=== PATIENT | female | born 1950 | race Caucasian/White ===

== ENCOUNTER → 2017-02-03 | Outpatient (CLI) | payer MEDICARE, MEDICAID ==
[~2017-02-03] MED LIST: ALBU18HF INH; ALBU2.5V NEB; ALPR0.25 PO; AMOX1TAB12 PO; DOXY100T PO; ENOX30DI3 SQ; FLUO10CA13 PO; HYDR-3241 PO; INHALER; [UNRECOGNIZED DRUG - CODE]
== END | disposition home or self-care (01) ==
LOC: CFH 10:54
PROVIDERS: ATTEND Internal Medicine
DX: Z13.820 Encounter for screening for osteoporosis (principal); M81.0 Age-related osteoporosis without current pathological fracture; S72.001D Fracture of unspecified part of neck of right femur, subsequent encounter for closed fracture with routine healing; X58.XXXD Exposure to other specified factors, subsequent encounter
CPT/HCPCS: 77080

== ENCOUNTER 2017-03-23 10:22 | Inpatient (IN) | payer MEDICARE, MEDICAID ==
[~2017-03-23] VITALS: Ht 160 cm; Wt 60.5 kg
[2017-03-23] MEDS ORDERED: ONDANSETRON 2MG/ML, 2ML ONE (11:41)
[2017-03-23] MEDS ORDERED: SODIUM CHLORIDE FLUSH 10ML SYR IVF ONE (12:00)
[2017-03-23] MEDS ORDERED: SODIUM CHLORIDE 0.9% 1,000ML IVBOLUS ONE (12:00)
[2017-03-23] MEDS ORDERED: ONDANSETRON 2MG/ML, 2ML IVPush ONE (12:00)
[2017-03-23 12:05] LABS: ASPARTATE AMINO TRANSFERASE 19 U/L (15-37); BLOOD UREA NITROGEN 72 mg/dL (7-18)
[2017-03-23 12:10] LABS: IS PT STATUS REG ER OR PRE ER? YES
[2017-03-23] MEDS ORDERED: NS + 40MEQ KCL 1,000 ML IV ONE (12:24)
[2017-03-23] MEDS ORDERED: MAGNESIUM SULFATE 1 GM in SODIUM CHLORIDE 0.9% 50 ML IV ONE (12:30)
[2017-03-23] MEDS ORDERED: NITROGLYCERIN OINT 2%, 1GM TP ONE ×2 (13:28→13:30)
[2017-03-23] MEDS ORDERED: ASPIRIN 81 MG TABLET CHEW ONE (13:28)
[2017-03-23] MEDS ORDERED: ASPIRIN 81 MG TABLET CHEW PO ONE (13:30)
[2017-03-23] MEDS ORDERED: MORPHINE SULFATE 4 MG/ML, 1ML IVPush PRN (14:00)
[2017-03-23] MEDS ORDERED: LABETALOL 5MG/ML, 20ML IV PRN (14:00)
[2017-03-23] MEDS ORDERED: ACETAMINOPHEN 325 MG TABLET PO PRN (14:00)
[2017-03-23] MEDS ORDERED: TEMAZEPAM 15 MG CAPSULE PO PRN (14:00)
[2017-03-23] MEDS ORDERED: BISACODYL 10 MG SUPP PR PRN (14:00)
[2017-03-23] MEDS ORDERED: POLYETHYLENE GLYCOL 17 GM PACKET PO PRN (14:00)
[2017-03-23] MEDS ORDERED: POTASSIUM CHLORIDE 40 MEQ in SODIUM CHLORIDE 0.9% 500 ML IV ONE (14:00)
[2017-03-23 15:19] VITALS: BP 157/95
[2017-03-23] MEDS: SODIUM CHLORIDE 0.9% 1,000 ML IV SCH (15:38)
[2017-03-23] MEDS ORDERED: MAALOX/HYOSCYAMINE/LIDOCAINE 45 ML BOTTLE PO ONE (16:00)
[2017-03-23 16:26] LABS: IS PT STATUS REG ER OR PRE ER? NO
[2017-03-23] MEDS: FLUTICASONE/VILANTEROL 200-25MCG/INH INH SCH (16:35)
[2017-03-23] MEDS: HEPARIN 5,000 UNITS/ML, 1ML SQ SCH ×2 (16:36→23:48)
[2017-03-23 19:35] VITALS: BP 116/74
[2017-03-23 22:37] LABS: IS PT STATUS REG ER OR PRE ER? NO
[2017-03-24 01:47] VITALS: BP 112/68
[2017-03-24] MEDS: SODIUM CHLORIDE 0.9% 1,000 ML IV SCH ×2 (01:51→08:34)
[2017-03-24 05:08] LABS: BLOOD UREA NITROGEN 46 mg/dL (7-18)
[2017-03-24 05:12] LABS: ASPARTATE AMINO TRANSFERASE 17 U/L (15-37)
[2017-03-24 06:41] VITALS: BP 125/73
[2017-03-24] MEDS ORDERED: REGADENOSON 0.4 MG/5 ML SYRINGE ONE (08:23)
[2017-03-24] MEDS: FLUTICASONE/VILANTEROL 200-25MCG/INH INH SCH (08:34)
[2017-03-24] MEDS: HEPARIN 5,000 UNITS/ML, 1ML SQ SCH ×2 (08:34→17:05)
[2017-03-24] MEDS: FLUOXETINE 10 MG CAP PO SCH (08:34)
[2017-03-24] MEDS: OXYcodone IR 5MG TABLET PO PRN ×2 (08:42→17:05)
[2017-03-24] MEDS: ONDANSETRON 2MG/ML, 2ML IVP PRN ×2 (08:42→17:05)
[2017-03-24] MEDS ORDERED: POTASSIUM CHLORIDE 40 MEQ in SODIUM CHLORIDE 0.9% 500 ML IV ONE (09:30)
[2017-03-24] MEDS: SENNA/DOCUSATE TABLET PO SCH (11:59)
[2017-03-24] MEDS: CEFTRIAXONE PMX 1GM/50ML 50 ML IV SCH (11:59)
[2017-03-24 13:12] VITALS: BP 113/72
[2017-03-24] MEDS ORDERED: MAGNESIUM CITRATE 300ML ORAL SOL PO ONE (16:30)
[2017-03-24] MEDS: OMEPRAZOLE 20 MG CAPSULE.DR PO SCH (17:05)
[2017-03-24] MEDS: SUCRALFATE 1 GM/10 ML UDC PO SCH ×2 (17:05→19:38)
[2017-03-24 19:45] VITALS: BP 107/67
[2017-03-25] MEDS: HEPARIN 5,000 UNITS/ML, 1ML SQ SCH ×3 (01:13→16:29)
[2017-03-25 01:26] VITALS: BP 130/73
[2017-03-25] MEDS: ONDANSETRON 2MG/ML, 2ML IVP PRN (01:43)
[2017-03-25] MEDS: OXYcodone IR 5MG TABLET PO PRN ×4 (01:43→18:44)
[2017-03-25 05:55] LABS: BLOOD UREA NITROGEN 22 mg/dL (7-18)
[2017-03-25 07:32] VITALS: BP 124/72
[2017-03-25] MEDS: SENNA/DOCUSATE TABLET PO SCH (09:00)
[2017-03-25] MEDS: SUCRALFATE 1 GM/10 ML UDC PO SCH ×4 (09:08→21:24)
[2017-03-25] MEDS: FLUOXETINE 10 MG CAP PO SCH (09:08)
[2017-03-25] MEDS: FLUTICASONE/VILANTEROL 200-25MCG/INH INH SCH (09:08)
[2017-03-25] MEDS: OMEPRAZOLE 20 MG CAPSULE.DR PO SCH ×2 (09:08→16:29)
[2017-03-25] MEDS: CEFTRIAXONE PMX 1GM/50ML 50 ML IV SCH (12:01)
[2017-03-25 13:47] VITALS: BP 101/58
[2017-03-25] MEDS: maalox/diphenh/lido/sucralfate 5 ML PO SCH ×3 (14:14→21:24)
[2017-03-25 19:18] VITALS: BP 105/63
[2017-03-26] MEDS: HEPARIN 5,000 UNITS/ML, 1ML SQ SCH ×3 (00:57→16:19)
[2017-03-26 02:12] VITALS: BP 112/72
[2017-03-26] MEDS: OXYcodone IR 5MG TABLET PO PRN ×4 (04:33→17:14)
[2017-03-26] MEDS: ONDANSETRON 2MG/ML, 2ML IVP PRN (07:03)
[2017-03-26 07:10] VITALS: BP 131/75
[2017-03-26] MEDS: FLUTICASONE/VILANTEROL 200-25MCG/INH INH SCH (07:45)
[2017-03-26] MEDS: maalox/diphenh/lido/sucralfate 5 ML PO SCH ×2 (07:46→11:33)
[2017-03-26] MEDS: SUCRALFATE 1 GM/10 ML UDC PO SCH ×3 (07:46→16:19)
[2017-03-26] MEDS: FLUOXETINE 10 MG CAP PO SCH (07:46)
[2017-03-26] MEDS: OMEPRAZOLE 20 MG CAPSULE.DR PO SCH ×2 (07:46→16:19)
[2017-03-26] MEDS: SENNA/DOCUSATE TABLET PO SCH (07:48)
[2017-03-26 12:40] VITALS: BP 112/68
[2017-03-26] MEDS: CEFTRIAXONE PMX 1GM/50ML 50 ML IV SCH (12:58)
[2017-03-26] MEDS ORDERED: OMEP-110 PO (15:51)
[2017-03-26] MEDS ORDERED: FLUT1BLS INH (15:51)
[2017-03-26] MEDS ORDERED: maalox/diphenh/lido/sucralfate PO (15:51)
[2017-03-26] MEDS ORDERED: SUCR1ORA2 PO (15:51)
[2017-03-26] MEDS ORDERED: CEFD300C37 PO (15:51)
[2017-03-26] MEDS ORDERED: SENN1TAB7 PO (16:00)
[2017-03-26] MEDS ORDERED: POLY17PO5 PO (16:00)
[2017-03-26] MEDS ORDERED: ONDANSETRON ODT 4 MG ONE (18:05)
== END 2017-03-26 18:16 | disposition home or self-care (01) | DRG 391 ==
LOC: ED 11:18 → EDIP 13:36 → 5SO 14:59 → 3NE 03-24 18:50
PROVIDERS: ADMIT Internal Medicine; ATTEND Internal Medicine
DX: K20.9 Esophagitis, unspecified (principal); N17.0 Acute kidney failure with tubular necrosis; N39.0 Urinary tract infection, site not specified; J96.10 Chronic respiratory failure, unspecified whether with hypoxia or hypercapnia; E87.1 Hypo-osmolality and hyponatremia; E86.0 Dehydration; B96.20 Unspecified Escherichia coli [E. coli] as the cause of diseases classified elsewhere; E87.6 Hypokalemia; F32.9 Major depressive disorder, single episode, unspecified; F41.1 Generalized anxiety disorder; J44.9 Chronic obstructive pulmonary disease, unspecified; K59.09 Other constipation; Z82.5 Family history of asthma and other chronic lower respiratory diseases; Z87.891 Personal history of nicotine dependence; Z99.81 Dependence on supplemental oxygen; Z87.81 Personal history of (healed) traumatic fracture; Z80.9 Family history of malignant neoplasm, unspecified; Z90.49 Acquired absence of other specified parts of digestive tract; Z98.51 Tubal ligation status
CPT/HCPCS: 36415; 71020; 74022; 76700; 78452; 80048; 80053; 80061; 81001; 83036; 83690; 83735; 84439; 84443; 84484; 85025; 85610; 85730; 87077; 87086; 87186; 93005; 93017; 96361; 96374; J0696; J1644; J2405; J2785; J3480; A9502; C9898; J7030; J7040

== ENCOUNTER 2017-06-03 13:03 | Inpatient (IN) | payer MEDICAID, MEDICARE ==
[~2017-06-03] VITALS: Ht 160 cm; Wt 57.9 kg
[~2017-06-03 13:03] MED LIST changes: +CEFD300C37 PO; +FLUT1BLS INH; +OMEP-110 PO; +POLY17PO5 PO; +SENN1TAB7 PO; +SUCR1ORA2 PO; +maalox/diphenh/lido/sucralfate PO
[2017-06-03] MEDS ORDERED: SODIUM CHLORIDE 0.9% 1,000 ML IV ONE (13:36)
[2017-06-03] MEDS ORDERED: FAMOTIDINE 20 MG/2 ML IVP ONE (14:00)
[2017-06-03] MEDS ORDERED: SODIUM CHLORIDE 0.9% 1,000ML IVBOLUS ONE (14:00)
[2017-06-03] MEDS ORDERED: ONDANSETRON 2MG/ML, 2ML IVPush ONE (14:00)
[2017-06-03 14:30] LABS: ASPARTATE AMINO TRANSFERASE 25 U/L (15-37); BLOOD UREA NITROGEN 71 mg/dL (7-18)
[2017-06-03 14:57] LABS: IS PT STATUS REG ER OR PRE ER? YES
[2017-06-03] MEDS ORDERED: ONDANSETRON 2MG/ML, 2ML ONE (15:00)
[2017-06-03] MEDS ORDERED: FAMOTIDINE 20 MG/2 ML ONE (15:00)
[2017-06-03] MEDS ORDERED: MAALOX/HYOSCYAMINE/LIDOCAINE 45 ML BOTTLE PO ONE ×2 (16:30→21:00)
[2017-06-03] MEDS ORDERED: MAALOX/HYOSCYAMINE/LIDOCAINE 45 ML BOTTLE ONE (16:32)
[2017-06-03] MEDS ORDERED: PROMETHAZINE 25 MG/ML, 1ML IM PRN (19:00)
[2017-06-03] MEDS ORDERED: ALBUTEROL SULFATE 2.5 MG/3 ML NPPB PRN (19:00)
[2017-06-03] MEDS ORDERED: ACETAMINOPHEN 325 MG TABLET PO PRN (19:00)
[2017-06-03] MEDS ORDERED: BISACODYL 10 MG SUPP PR PRN (19:00)
[2017-06-03 20:00] VITALS: BP 164/98
[2017-06-03] MEDS: ONDANSETRON 2MG/ML, 2ML IVPush PRN (20:25)
[2017-06-03] MEDS: CEFTRIAXONE PMX 1GM/50ML 50 ML IV SCH (20:25)
[2017-06-03] MEDS: HEPARIN 5,000 UNITS/ML, 1ML SQ SCH (20:26)
[2017-06-03] MEDS: NS + 20MEQ KCL 1,000 ML IV SCH (21:27)
[2017-06-04] MEDS: ONDANSETRON 2MG/ML, 2ML IVPush PRN ×2 (02:56→10:39)
[2017-06-04 04:02] VITALS: BP 169/92
[2017-06-04] MEDS: NS + 20MEQ KCL 1,000 ML IV SCH ×3 (06:18→17:54)
[2017-06-04] MEDS: HEPARIN 5,000 UNITS/ML, 1ML SQ SCH ×3 (06:18→20:39)
[2017-06-04 06:27] LABS: BLOOD UREA NITROGEN 42 mg/dL (7-18)
[2017-06-04 06:32] LABS: ASPARTATE AMINO TRANSFERASE 19 U/L (15-37)
[2017-06-04 07:54] VITALS: BP 147/83
[2017-06-04] MEDS: POTASSIUM CHLORIDE 20 MEQ TAB.ER.PRT PO SCH ×3 (09:00→20:39)
[2017-06-04] MEDS: FLUTICASONE/VILANTEROL 200-25MCG/INH INH SCH (09:00)
[2017-06-04] MEDS: FLUOXETINE 10 MG CAP PO SCH (10:39)
[2017-06-04 13:32] VITALS: BP 130/74
[2017-06-04] MEDS: MAALOX/HYOSCYAMINE/LIDOCAINE 45 ML BOTTLE PO PRN (14:23)
[2017-06-04 19:28] VITALS: BP 146/83
[2017-06-04] MEDS: CEFTRIAXONE PMX 1GM/50ML 50 ML IV SCH (20:39)
[2017-06-05] MEDS: NS + 20MEQ KCL 1,000 ML IV SCH (02:06)
[2017-06-05 02:25] VITALS: BP 121/74
[2017-06-05] MEDS: ONDANSETRON 2MG/ML, 2ML IVPush PRN (03:40)
[2017-06-05] MEDS: MAALOX/HYOSCYAMINE/LIDOCAINE 45 ML BOTTLE PO PRN ×2 (04:49→21:12)
[2017-06-05] MEDS: HEPARIN 5,000 UNITS/ML, 1ML SQ SCH ×3 (04:50→21:13)
[2017-06-05 06:01] LABS: BLOOD UREA NITROGEN 18 mg/dL (7-18)
[2017-06-05 07:11] VITALS: BP 116/74
[2017-06-05] MEDS: FLUTICASONE/VILANTEROL 200-25MCG/INH INH SCH (07:59)
[2017-06-05] MEDS: FLUOXETINE 10 MG CAP PO SCH (07:59)
[2017-06-05] MEDS ORDERED: POTASSIUM PHOSPHATE 44 MEQ in SODIUM CHLORIDE 0.9% 500 ML IV ONE (08:00)
[2017-06-05] MEDS: SUCRALFATE 1 GM/10 ML UDC PO SCH ×4 (10:53→21:12)
[2017-06-05] MEDS: LACTOBACILLUS CHEW TABLET PO SCH ×3 (10:54→21:13)
[2017-06-05] MEDS: OMEPRAZOLE 20 MG CAPSULE.DR PO SCH (10:54)
[2017-06-05] MEDS: FAMOTIDINE 20 MG TABLET PO SCH ×2 (10:54→21:13)
[2017-06-05 15:27] VITALS: BP 146/83
[2017-06-05 19:38] VITALS: BP 122/77
[2017-06-05] MEDS: CEFTRIAXONE PMX 1GM/50ML 50 ML IV SCH (20:06)
[2017-06-06 00:52] VITALS: BP 152/83
[2017-06-06] MEDS: HEPARIN 5,000 UNITS/ML, 1ML SQ SCH ×3 (05:14→19:59)
[2017-06-06 05:33] LABS: BLOOD UREA NITROGEN 10 mg/dL (7-18)
[2017-06-06 06:13] VITALS: BP 143/80
[2017-06-06] MEDS: SUCRALFATE 1 GM/10 ML UDC PO SCH ×4 (07:30→19:58)
[2017-06-06] MEDS: FLUOXETINE 10 MG CAP PO SCH (07:31)
[2017-06-06] MEDS: FLUTICASONE/VILANTEROL 200-25MCG/INH INH SCH (07:31)
[2017-06-06] MEDS: LACTOBACILLUS CHEW TABLET PO SCH ×3 (07:31→19:58)
[2017-06-06] MEDS: FAMOTIDINE 20 MG TABLET PO SCH ×2 (07:31→19:58)
[2017-06-06] MEDS: OMEPRAZOLE 20 MG CAPSULE.DR PO SCH ×2 (07:31→18:10)
[2017-06-06] MEDS: MAALOX/HYOSCYAMINE/LIDOCAINE 45 ML BOTTLE PO PRN (08:04)
[2017-06-06 12:37] VITALS: BP 127/73
[2017-06-06 18:41] VITALS: BP 130/72
[2017-06-06] MEDS: CEFTRIAXONE PMX 1GM/50ML 50 ML IV SCH (19:58)
[2017-06-07 03:24] VITALS: BP 134/83
[2017-06-07] MEDS: HEPARIN 5,000 UNITS/ML, 1ML SQ SCH ×3 (05:00→20:57)
[2017-06-07 07:18] VITALS: BP 135/76
[2017-06-07] MEDS: FLUOXETINE 10 MG CAP PO SCH (07:54)
[2017-06-07] MEDS: LACTOBACILLUS CHEW TABLET PO SCH ×3 (07:54→20:56)
[2017-06-07] MEDS: OMEPRAZOLE 20 MG CAPSULE.DR PO SCH ×2 (07:54→15:52)
[2017-06-07] MEDS: SUCRALFATE 1 GM/10 ML UDC PO SCH ×4 (07:54→20:56)
[2017-06-07] MEDS: FLUTICASONE/VILANTEROL 200-25MCG/INH INH SCH (07:54)
[2017-06-07] MEDS: FAMOTIDINE 20 MG TABLET PO SCH (07:55)
[2017-06-07 13:59] VITALS: BP 119/77
[2017-06-07 20:00] VITALS: BP 139/90
[2017-06-08 01:36] VITALS: BP 137/82
[2017-06-08] MEDS: HEPARIN 5,000 UNITS/ML, 1ML SQ SCH (04:35)
[2017-06-08 05:47] LABS: BLOOD UREA NITROGEN 11 mg/dL (7-18)
[2017-06-08] MEDS: SUCRALFATE 1 GM/10 ML UDC PO SCH (07:28)
[2017-06-08] MEDS: LACTOBACILLUS CHEW TABLET PO SCH (07:28)
[2017-06-08] MEDS: FLUTICASONE/VILANTEROL 200-25MCG/INH INH SCH (07:29)
[2017-06-08] MEDS: FLUOXETINE 10 MG CAP PO SCH (07:29)
[2017-06-08] MEDS: OMEPRAZOLE 20 MG CAPSULE.DR PO SCH (07:29)
[2017-06-08 08:06] VITALS: BP 145/87
[2017-06-08] MEDS ORDERED: OMEP-110 PO (09:05)
[2017-06-08] MEDS ORDERED: SUCR1ORA2 PO (09:05)
== END 2017-06-08 11:40 | disposition home or self-care (01) | DRG 391 ==
LOC: ED 14:59 → EDIP 16:49 → 3NE 17:11 → DCLOUNGE 06-08 11:15
PROVIDERS: ADMIT Internal Medicine; ATTEND Internal Medicine
DX: K52.9 Noninfective gastroenteritis and colitis, unspecified (principal); N17.0 Acute kidney failure with tubular necrosis; N39.0 Urinary tract infection, site not specified; E87.1 Hypo-osmolality and hyponatremia; J96.10 Chronic respiratory failure, unspecified whether with hypoxia or hypercapnia; K29.70 Gastritis, unspecified, without bleeding; D75.1 Secondary polycythemia; E86.0 Dehydration; E87.6 Hypokalemia; F12.90 Cannabis use, unspecified, uncomplicated; F41.9 Anxiety disorder, unspecified; J44.9 Chronic obstructive pulmonary disease, unspecified; K20.9 Esophagitis, unspecified; K59.09 Other constipation; R13.10 Dysphagia, unspecified; Z82.49 Family history of ischemic heart disease and other diseases of the circulatory system; Z82.5 Family history of asthma and other chronic lower respiratory diseases; Z87.891 Personal history of nicotine dependence
CPT/HCPCS: 36415; 74176; 74220; 80048; 80053; 81001; 83690; 83735; 84100; 84484; 85025; 86677; 87040; 87046; 87086; 87324; 87328; 87329; 87899; 89055; 93005; 96361; 96374; 96375; J0696; J1644; J2405; J3480; J7030; J7040; S0028

== ENCOUNTER 2018-05-01 17:48 | Emergency (ER) | payer MEDICARE, MEDICAID ==
[~2018-05-01] VITALS: Ht 160 cm; Wt 59.1 kg
[~2018-05-01 17:48] MED LIST changes: -SUCR1ORA2 PO; +SUCR1ORA5 PO
[2018-05-01] MEDS ORDERED: SODIUM CHLORIDE 0.9% 1,000 ML IV ONE (18:16)
[2018-05-01] MEDS ORDERED: SODIUM CHLORIDE 0.9% 1,000ML IVBOLUS ONE (18:30)
[2018-05-01] MEDS ORDERED: SODIUM CHLORIDE FLUSH 10ML SYR IVF ONE (18:30)
[2018-05-01] MEDS ORDERED: ONDANSETRON ODT 4 MG ONE ×2 (18:32→21:27)
[2018-05-01 18:41] LABS: BASOPHILS # (AUTO) 0.03 x10^3/uL (0-0.1); BASOPHILS % (AUTO) 0 % (0-1); EOSINOPHILS % (AUTO) 0 % (1-7); LYMPHOCYTES # (AUTO) 0.82 x10^3/uL (1-3.4); LYMPHOCYTES % (AUTO) 6 % (22-44); MD NO; MEAN CORPUSCULAR HEMOGLOBIN 32.9 pg (27.0-34.8); MEAN CORPUSCULAR HGB CONC 33.6 g/dL (32.4-35.8); MEAN CORPUSCULAR VOLUME 97.7 fL (80-100); MEAN PLATELET VOLUME 8.8 fL (7.4-10.4); MONOCYTES # (AUTO) 0.26 x10^3/uL (0.2-0.8); MONOCYTES % (AUTO) 2 % (2-9); NEUTROPHILS # (AUTO) 12.08 x10^3/uL (1.8-6.8); NEUTROPHILS % (AUTO) 92 % (42-75); PLATELET COUNT 214 x10^3/uL (130-400); RED CELL DISTRIBUTION WIDTH 13.9 % (9.6-15.2)
[2018-05-01 18:51] LABS: ALANINE AMINOTRANSFERASE 22 U/L (12-78); ALBUMIN 4.9 g/dL (3.4-5.0); ANION GAP 11 mmol/L (5-15); CALCIUM 10.2 mg/dL (8.5-10.1); CHLORIDE 99 mmol/L (98-107)
[2018-05-01] MEDS ORDERED: MORPHINE SULFATE 4 MG/ML, 1ML ONE (18:52)
[2018-05-01 18:54] LABS: ALKALINE PHOSPHATASE 130 U/L (45-117); BILIRUBIN,TOTAL 0.8 mg/dL (0.2-1.0); CREATININE 1.18 mg/dL (0.55-1.02); TOTAL PROTEIN 9.7 g/dL (6.4-8.2)
[2018-05-01] MEDS ORDERED: ONDANSETRON ODT 4 MG PO ONE ×2 (19:00→21:30)
[2018-05-01] MEDS ORDERED: MORPHINE SULFATE 4 MG/ML, 1ML IVPush PRN (19:00)
[2018-05-01] MEDS ORDERED: OMNIPAQUE 350 MG/ML, 100ML BOTTLE ONE (19:32)
[2018-05-01 20:03] LABS: MICROSCOPIC AUTO
[2018-05-01 20:06] LABS: CULTURE INDICATED? NO
[2018-05-01 21:15] VITALS: BP 115/66
== END 2018-05-01 23:16 | disposition home or self-care (01) ==
LOC: ED 22:11
DX: K52.9 Noninfective gastroenteritis and colitis, unspecified (principal); J44.9 Chronic obstructive pulmonary disease, unspecified; F17.200 Nicotine dependence, unspecified, uncomplicated
CPT/HCPCS: 36415; 74177; 80053; 81001; 83605; 83690; 84484; 85025; 96361; 96374; 99285; J7030; Q0162; Q9967

== ENCOUNTER 2020-04-14 13:42 | Inpatient (IN) | payer MEDICARE, MEDICAID ==
[~2020-04-14] VITALS: Ht 160 cm; Wt 55.5 kg
[~2020-04-14 13:42] MED LIST changes: +SENN-177 PO; -SENN1TAB7 PO
--- NOTE | 2020-04-14 13:59 | NUR ---
EKG IN TRIAGE
[2020-04-14] MEDS ORDERED: SODIUM CHLORIDE FLUSH 10ML SYR IVF ONE (14:30)
[2020-04-14] MEDS ORDERED: SODIUM CHLORIDE 0.9% 1,000ML IVBOLUS ONE (14:30)
[2020-04-14 14:47] LABS: BASOPHILS # (AUTO) 0.02 x10^3/uL (0-0.1); BASOPHILS % (AUTO) 0 % (0-1); EOSINOPHILS # (AUTO) 0.01 x10^3/uL (0-0.4); EOSINOPHILS % (AUTO) 0 % (1-7); LYMPHOCYTES # (AUTO) 0.92 x10^3/uL (1-3.4); LYMPHOCYTES % (AUTO) 12 % (22-44); MD NO; MEAN CORPUSCULAR HEMOGLOBIN 32.6 pg (27.0-34.8); MEAN CORPUSCULAR HGB CONC 32.7 g/dL (32.4-35.8); MEAN CORPUSCULAR VOLUME 99.7 fL (80-100); MEAN PLATELET VOLUME 9.1 fL (7.4-10.4); MONOCYTES # (AUTO) 0.43 x10^3/uL (0.2-0.8); MONOCYTES % (AUTO) 6 % (2-9); NEUTROPHILS # (AUTO) 6.03 x10^3/uL (1.8-6.8); NEUTROPHILS % (AUTO) 81 % (42-75); PLATELET COUNT 179 x10^3/uL (130-400); RED BLOOD COUNT 5.69 x10^6/uL (3.82-5.3); RED CELL DISTRIBUTION WIDTH 14.1 % (9.6-15.2)
[2020-04-14] MEDS ORDERED: ONDANSETRON 2MG/ML, 2ML ONE (14:49)
[2020-04-14 14:56] LABS: ALBUMIN 4.7 g/dL (3.4-5.0); ANION GAP 9 mmol/L (5-15); CALCIUM 9.8 mg/dL (8.5-10.1); CHLORIDE 105 mmol/L (98-107); CREATININE 0.76 mg/dL (0.55-1.02)
[2020-04-14 15:00] LABS: TROPONIN I < 0.015 ng/mL (0.000-0.045)
[2020-04-14] MEDS ORDERED: ONDANSETRON 2MG/ML, 2ML IVPush ONE (15:00)
--- NOTE | 2020-04-14 15:07 | NUR ---
iv ns running at this time. pt medicated for nausea per order. pt reports lower left quadrant pain. pain reported to provider.
--- NOTE | 2020-04-14 16:00 | NUR ---
BREAK RN. ADMITTING MD AT BEDSIDE FOR ASSESSMENT. PT REPOSITIONED FOR COMFORT. PT REMAINS ON MONITORS, VSS. PT URINATED, GAVE SMALL SAMPLE, WILL SEND TO LAB.
--- NOTE | 2020-04-14 16:29 | NUR ---
BREAK RN. ATTEMPT X1 TO CALL REPORT TO FLOOR RN, NO ANSWER.
[2020-04-14] MEDS ORDERED: ASPIRIN 325 MG TABLET EC PO ONE (16:30)
[2020-04-14] MEDS ORDERED: ONDANSETRON ODT 4 MG PO PRN (16:30)
[2020-04-14] MEDS ORDERED: LORazepam 1MG TABLET PO PRN (16:30)
[2020-04-14] MEDS ORDERED: HYDROcodone/APAP 5/325 TABLET PO PRN (16:30)
[2020-04-14] MEDS ORDERED: ONDANSETRON 2MG/ML, 2ML IVPush PRN (16:30)
[2020-04-14] MEDS ORDERED: DOCUSATE 100 MG CAPSULE PO PRN (16:30)
[2020-04-14] MEDS ORDERED: NITROGLYCERIN 0.4 MG BOTTLE (25 TABS) SL PRN (16:30)
[2020-04-14] MEDS ORDERED: NITROGLYCERIN 0.4 MG/SPRAY SL PRN (16:30)
[2020-04-14] MEDS ORDERED: morphine SULFATE 10 MG/ML, 1ML IV PRN (16:30)
[2020-04-14] MEDS ORDERED: ACETAMINOPHEN 325 MG TABLET PO PRN ×2 (16:30)
--- NOTE | 2020-04-14 16:37 | NUR ---
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
--- NOTE | 2020-04-14 16:38 | NUR ---
hr trends printed. pt had one episode where hr went into the 40's. [facility] made aware and given printout of event.
[2020-04-14 16:43] LABS: MICROSCOPIC INDICATED
[2020-04-14] MEDS ORDERED: POTASSIUM CHLORIDE 40 MEQ in SODIUM CHLORIDE 0.9% 500 ML IV ONE (17:30)
[2020-04-14 17:36] VITALS: BP 184/104
[2020-04-14] MEDS ORDERED: PROMETHAZINE 25 MG/ML, 1ML ONE (17:39)
[2020-04-14] MEDS: PANTOPRAZOLE 40 MG IV IVPush SCH (17:49)
[2020-04-14] MEDS ORDERED: PROMETHAZINE 25 MG/ML, 1ML IM PRN (18:00)
[2020-04-14] MEDS ORDERED: ATROPINE SYRINGE 0.1 MG/ML, 10ML IVPush PRN (18:00)
[2020-04-14 18:43] VITALS: BP 161/89
[2020-04-14 18:52] LABS: TROPONIN I < 0.015 ng/mL (0.000-0.045)
[2020-04-14] MEDS ORDERED: ALBUTEROL SULFATE 2.5 MG/3 ML NPPB PRN (20:00)
[2020-04-14] MEDS ORDERED: MAGNESIUM SULFATE 4 GM in SODIUM CHLORIDE 0.9% 100 ML IV ONE (20:30)
[2020-04-14] MEDS ORDERED: PROCHLORPERAZINE 10MG TABLET PO PRN (20:30)
[2020-04-14] MEDS: ENOXAPARIN 40 MG/0.4 ML SQ SCH (20:37)
[2020-04-14] MEDS: NICOTINE 14MG/24 HR PATCH.TD24 TD SCH (20:37)
[2020-04-14 21:35] LABS: TROPONIN I < 0.015 ng/mL (0.000-0.045)
[2020-04-14] MEDS: SODIUM CHLORIDE FLUSH 10ML SYR IVF SCH (22:22)
[2020-04-14] MEDS: LACTATED RINGERS 1,000 ML IV SCH (23:21)
[2020-04-15 00:17] VITALS: BP 152/86
[2020-04-15 01:34] LABS: TROPONIN I < 0.015 ng/mL (0.000-0.045)
[2020-04-15] MEDS ORDERED: LORazepam 2 MG/ML, 1ML IVPush ONE (02:00)
[2020-04-15 05:36] LABS: BASOPHILS % (AUTO) 0 % (0-1); EOSINOPHILS % (AUTO) 0 % (1-7); LYMPHOCYTES # (AUTO) 0.94 x10^3/uL (1-3.4); LYMPHOCYTES % (AUTO) 10 % (22-44); MD NO; MEAN CORPUSCULAR HEMOGLOBIN 33.1 pg (27.0-34.8); MEAN CORPUSCULAR VOLUME 100.3 fL (80-100); MEAN PLATELET VOLUME 9.2 fL (7.4-10.4); MONOCYTES # (AUTO) 0.36 x10^3/uL (0.2-0.8); MONOCYTES % (AUTO) 4 % (2-9); NEUTROPHILS # (AUTO) 8.25 x10^3/uL (1.8-6.8); NEUTROPHILS % (AUTO) 86 % (42-75); PLATELET COUNT 175 x10^3/uL (130-400); RED BLOOD COUNT 5.28 x10^6/uL (3.82-5.3); RED CELL DISTRIBUTION WIDTH 14.3 % (9.6-15.2)
[2020-04-15 05:40] LABS: ALBUMIN 4.3 g/dL (3.4-5.0); ANION GAP 9 mmol/L (5-15); CALCIUM 8.8 mg/dL (8.5-10.1); CHLORIDE 104 mmol/L (98-107)
[2020-04-15 05:45] LABS: ALANINE AMINOTRANSFERASE 17 U/L (12-78); ALKALINE PHOSPHATASE 93 U/L (45-117); BILIRUBIN,TOTAL 0.9 mg/dL (0.2-1.0); CHOL/HDL RATIO 3.5; CHOLESTEROL, TOTAL 223 mg/dL (140-239); CREATININE 0.66 mg/dL (0.55-1.02); HDL CHOL % 28 % (28-40); HDL CHOLESTEROL (DIRECT) 63 mg/dL (40-60); LDL CHOLESTEROL,CALCULATED 141 mg/dL (54-169); LDL/HDL RATIO 2.2 (0.5-3.0); TOTAL PROTEIN 8.2 g/dL (6.4-8.2); TRIGLYCERIDES 94 mg/dL (50-200); VLDL CHOLESTEROL 19 mg/dL (0-25)
[2020-04-15] MEDS: PANTOPRAZOLE 40 MG IV IVPush SCH (05:46)
[2020-04-15] MEDS: ASPIRIN 325 MG TABLET EC PO SCH (05:46)
[2020-04-15 07:05] VITALS: BP 170/91
[2020-04-15] MEDS ORDERED: PANTOPRAZOLE 40 MG IV IVPush SCH (07:30)
[2020-04-15] MEDS: SODIUM CHLORIDE FLUSH 10ML SYR IVF SCH ×2 (07:57→21:00)
[2020-04-15] MEDS ORDERED: REGADENOSON 0.4 MG/5 ML SYRINGE ONE (08:05)
[2020-04-15] MEDS ORDERED: LORazepam 1MG TABLET PO PRN (08:30)
[2020-04-15 12:25] VITALS: BP 123/77
[2020-04-15] MEDS ORDERED: POTASSIUM CHLORIDE 40 MEQ in SODIUM CHLORIDE 0.9% 500 ML IV ONE (16:30)
[2020-04-15] MEDS: ENOXAPARIN 40 MG/0.4 ML SQ SCH (16:41)
[2020-04-15 20:03] VITALS: BP 128/73
[2020-04-15] MEDS: NICOTINE 14MG/24 HR PATCH.TD24 TD SCH (21:14)
[2020-04-15] MEDS: LACTATED RINGERS 1,000 ML IV SCH (21:15)
[2020-04-16 01:12] VITALS: BP 129/79
[2020-04-16] MEDS: PANTOPRAZOLE 40MG TABLET PO SCH ×2 (05:30→16:27)
[2020-04-16] MEDS: ASPIRIN 325 MG TABLET EC PO SCH (05:30)
[2020-04-16 05:42] LABS: ANION GAP 6 mmol/L (5-15); CALCIUM 8.7 mg/dL (8.5-10.1); CHLORIDE 109 mmol/L (98-107); CREATININE 0.61 mg/dL (0.55-1.02)
[2020-04-16 05:44] LABS: BASOPHILS # (AUTO) 0.03 x10^3/uL (0-0.1); BASOPHILS % (AUTO) 0 % (0-1); EOSINOPHILS # (AUTO) 0.02 x10^3/uL (0-0.4); EOSINOPHILS % (AUTO) 0 % (1-7); LYMPHOCYTES # (AUTO) 1.38 x10^3/uL (1-3.4); LYMPHOCYTES % (AUTO) 11 % (22-44); MD NO; MEAN CORPUSCULAR HEMOGLOBIN 33.7 pg (27.0-34.8); MEAN CORPUSCULAR HGB CONC 33.7 g/dL (32.4-35.8); MEAN CORPUSCULAR VOLUME 99.9 fL (80-100); MEAN PLATELET VOLUME 9.2 fL (7.4-10.4); MONOCYTES # (AUTO) 0.92 x10^3/uL (0.2-0.8); MONOCYTES % (AUTO) 7 % (2-9); NEUTROPHILS % (AUTO) 81 % (42-75); PLATELET COUNT 150 x10^3/uL (130-400); RED CELL DISTRIBUTION WIDTH 14.4 % (9.6-15.2)
[2020-04-16 06:47] VITALS: BP 125/74
[2020-04-16] MEDS ORDERED: PANT40TA5 PO (08:37)
[2020-04-16] MEDS ORDERED: ALBU18HF BC (08:37)
[2020-04-16] MEDS ORDERED: FLUO10CA13 PO (08:37)
[2020-04-16] MEDS ORDERED: NICO-487 TD (08:37)
[2020-04-16] MEDS ORDERED: MELA1TAB15 PO (08:37)
[2020-04-16] MEDS ORDERED: POTASSIUM PHOS 4.4 MEQ/ML IV SCH (09:30)
[2020-04-16] MEDS: SODIUM CHLORIDE FLUSH 10ML SYR IVF SCH (10:18)
[2020-04-16 10:19] LABS: FIO2 ROOM AIR %
[2020-04-16] MEDS: POTASSIUM PHOSPHATE 21 MMOL in SODIUM CHLORIDE 0.9% 500 ML IV SCH ×2 (10:27→16:28)
[2020-04-16 12:35] VITALS: BP 128/77
== END 2020-04-16 18:08 | disposition home or self-care (01) | DRG 392 ==
LOC: ED 15:43 → EDIP 15:55 → 5SO 17:11
PROVIDERS: ADMIT Internal Medicine; ATTEND Internal Medicine
DX: K29.70 Gastritis, unspecified, without bleeding (principal); K20.8 Other esophagitis; D75.1 Secondary polycythemia; E78.5 Hyperlipidemia, unspecified; E86.0 Dehydration; E87.6 Hypokalemia; F17.210 Nicotine dependence, cigarettes, uncomplicated; F41.0 Panic disorder [episodic paroxysmal anxiety]; F41.1 Generalized anxiety disorder; I44.4 Left anterior fascicular block; J44.9 Chronic obstructive pulmonary disease, unspecified; T50.995A Adverse effect of other drugs, medicaments and biological substances, initial encounter; K80.20 Calculus of gallbladder without cholecystitis without obstruction; Z79.899 Other long term (current) drug therapy; Z80.9 Family history of malignant neoplasm, unspecified; Z82.5 Family history of asthma and other chronic lower respiratory diseases; Z91.14 Patient's other noncompliance with medication regimen; Y92.098 Other place in other non-institutional residence as the place of occurrence of the external cause
CPT/HCPCS: 36415; 36600; 71045; 76700; 78452; 80048; 80053; 80061; 81001; 82040; 82803; 83735; 84100; 84484; 85025; 87086; 93005; 93017; 96361; 96374; 99285; G0378; J1650; J2405; J2550; J2785; J3475; J3480; Q0164; A9502; C9113; J2060; J7030; J7040; J7120